=== PATIENT | male | born 1945 | race Caucasian/White ===

== ENCOUNTER → 2020-01-03 | Outpatient (CLI) | payer OTHER | LOC: M.LAB 09:51 | PROVIDERS: ATTEND Internal Medicine Gastroenterology | DX: Z01.812 Encounter for preprocedural laboratory examination (principal); Z11.59 Encounter for screening for other viral diseases; Z86.010 Personal history of colon polyps ==

== ENCOUNTER → 2020-01-08 | Outpatient (CLI) | payer OTHER ==
[2020-01-08 08:57] LABS: POTASSIUM 3.2 mmol/L (3.5-5.1)
== END ==
LOC: M.LAB 05:49
PROVIDERS: ATTEND Anesthesiology
DX: E11.9 Type 2 diabetes mellitus without complications (principal); E87.6 Hypokalemia